=== PATIENT | female | born 1970 | race Caucasian/White ===

== ENCOUNTER 2017-01-24 16:34 | Inpatient (IN) ==
[2017-01-24] MEDS ORDERED: SODIUM CHLORIDE 0.9% 1,000 ML IV STA (17:27)
--- NOTE | 2017-01-24 18:05 | Emergency Department Note ---
Flaquita Hannah Hilary, am scribing for, and in the presence of, Zeeshan Ontiveros MD 17:32. Weston Hannah Robert M, MD, personally performed the services described in this documentation, ascribed by Meghan Sams in my presence, and it is both accurate and complete [id number] . Arrival - Arrival Chief Complaint: GI Bleed/Rectal Stated Complaint: WHOLE BODY ACHING/HURTING REALLY BAD ED Nursing Triage Note: Pt c/o bright red rectal bleeding today with clots. Pt reports recent Crohn's flare up. Pt also had edema to right eye lid- states gets cellulitis to eye with her flare ups. Pt c/o generalized body aches. Mode of Arrival: Ambulatory Limitations: No Limitations Source: Patient, RN Notes Reviewed Time Seen by Provider: 01/24/17 17:24 - History of Present Illness HPI Narrative: Pt is a white female presenting to the ED with c/o of bright red rectal bleeding today with clots which onset earlier today. Pt reports that she has had Crohn's for 16 years and believes this is a flare up from it. She says she is also finding "tissue" in her underwear during these flareups, of which she had 3 episodes today. No other complaints or problems stated in the ED. Onset (ago): hour(s) Date of Last Menstrual Period: Hyst Allergies/Adverse Reactions: Allergies Allergy/AdvReac Type Severity Reaction Status Date / Time cefazolin Allergy Unknown/Unable Verified 01/24/17 16:54 to obtain diphenhydramine AdvReac Irritable Verified 01/24/17 16:54 [From Benadryl] Home Medications: Home Medications Medication Instructions Recorded Confirmed Type HYDROcodone/ACETAMIN 10-325 [Pioneer 1 tablet PO Q4H PRN 01/24/17 01/24/17 History 10-325] Promethazine Tab [Phenergan Tab] 25 mg PO Q6H PRN 01/24/17 01/24/17 History Zolpidem Tartrate 10 mg PO BEDTIME PRN 01/24/17 01/24/17 History predniSONE TAB [PredniSONE] 20 mg PO BID 01/24/17 01/24/17 History Review of System - Review of System 12 point system: reviewed and no additional remarkable complaints except as stated - Review of System Constitutional: Present: fever Eyes: Present: redness, vision change Head/Ears/Nose/Throat: Present: other (constantly thirsty) Gastrointestinal: Present: abdominal pain, diarrhea, hematochezia Musculoskeletal: Present: other (joint pain) Medical,Surgical,& Family Hx - Medical History Rheumatology: History of;: Rheumatoid Arthritis Gastrointestinal: History of: Crohn's Disease - Social History Smoking Status: Never smoker Frequency of Alcohol Use: Occasionally Type of Drug Use: None Exam Vital Signs: Vital Signs Temperature 99.5 F 01/24/17 17:14 Pulse Rate 130 H 01/24/17 19:00 Respiratory Rate 18 01/24/17 19:00 Blood Pressure 148/100 01/24/17 19:00 O2 Sat by Pulse Oximetry 100 01/24/17 19:00 - General General appearance: alert, in no apparent distress, other (skinny) - Head Head exam: Present: atraumatic, normocephalic, other (pick rice along right cheek) - Eye Eye exam: Present: normal appearance, PERRL, EOMI, other (periorbital errythema) - ENT ENT exam: Present: mucous membranes moist, TM's normal bilaterally. Absent: mucous membranes dry - Neck Neck exam: Present: full ROM, trachea midline. Absent: tenderness - Chest Chest inspection: Present: symmetric chest wall rise. Absent: tenderness - Respiratory Respiratory exam: Present: normal lung sounds bilaterally. Absent: respiratory distress - Cardiovascular Cardiovascular exam: Present: regular rate, normal rhythm, normal heart sounds. Absent: murmur, rubs, gallop - Abdominal Exam Abdominal exam: Present: soft, tenderness, normal bowel sounds. Absent: distention - Extremities Exam Extremities exam: Present: full ROM. Absent: tenderness, calf tenderness - Back Exam Back exam: Present: full ROM. Absent: tenderness - Neurological Exam Neurological exam: Present: alert, oriented X3, CN II-XII intact. Absent: motor sensory deficit - Psychiatric Psychiatric exam: Present: normal affect, normal mood, other (hyperdramatic) - Skin Skin exam: Present: warm, dry, intact, normal color. Absent: rash Course - Consultations Consultation #1: The hospitalist service will evaluate and admit the patient. Time: 20:27 Results - Labs CBC & BMP: 01/24/17 18:14 01/24/17 18:14 Lab Results: I have reviewed the patients labs Labs: Lab Results WBC 16.3 T/CUMM (4-12) H 01/24/17 18:14 RBC 3.11 MC/CUMM (3.8-5.5) L 01/24/17 18:14 Hgb 9.9 GM/DL (12.0-16.0) L 01/24/17 18:14 Hct 29.3 VOL% (35.7-47.0) L 01/24/17 18:14 MCV 94.2 FL (87-102) 01/24/17 18:14 MCH 32 PG (27-34) 01/24/17 18:14 MCHC 33.8 GM/DL (32-36) 01/24/17 18:14 RDW 12.7 % (9.3-17.3) 01/24/17 18:14 Plt Count 453 T/CUMM (130-400) H 01/24/17 18:14 MPV 9.7 FL (9.6-12.0) 01/24/17 18:14 Neut % (Auto) 73.9 % (38.7-73.9) 01/24/17 18:14 Lymph % (Auto) 14.3 % (21.3-54.2) L 01/24/17 18:14 [place] % (Auto) 9.9 % (1.7-12.7) 01/24/17 18:14 Eos % (Auto) 0.7 % (0.00-10.9) 01/24/17 18:14 Baso % (Auto) 0.5 % (0.0-0.8) 01/24/17 18:14 Neut # (Auto) 12.0 10*3/uL (1.4-7.4) H 01/24/17 18:14 Lymph # (Auto) 2.3 10*3/uL (1.4-4.0) 01/24/17 18:14 [place] # (Auto) 1.6 10*3/uL (0.11-0.8) H 01/24/17 18:14 Eos # (Auto) 0.1 10*3/uL (0.0-0.87) 01/24/17 18:14 Baso # (Auto) 0.1 10*3/uL (0.0-0.2) 01/24/17 18:14 Immature Gran % 0.7 % 01/24/17 18:14 Nucleated RBC % 0.0 /100WBC 01/24/17 18:14 Immature Gran # 0.12 # 01/24/17 18:14 Nucleated RBCs # 0.00 10*3/uL 01/24/17 18:14 INR 1.0 01/24/17 18:14 PT Patient/Control Mix 10.8 SECS 01/24/17 18:14 Sodium 136 MMOL/L (136-145) 01/24/17 18:14 Potassium 3.7 MMOL/L (3.5-5.1) 01/24/17 18:14 Chloride 101 MMOL/L (98-107) 01/24/17 18:14 Carbon Dioxide 27 MMOL/L (21-32) 01/24/17 18:14 Anion Gap 11.7 MMOL/L (5.0-15.0) 01/24/17 18:14 BUN 10 MG/DL (7-18) 01/24/17 18:14 Creatinine 0.80 MG/DL (0.55-1.02) 01/24/17 18:14 GFR Calculation 79 ML/MIN 01/24/17 18:14 BUN/Creatinine Ratio 12.00 RATIO (6.00-20.00) 01/24/17 18:14 Glucose 100 MG/DL (74-106) 01/24/17 18:14 Calculated Osmolality 270.0 MOS/KG (273-304) L 01/24/17 18:14 Calcium 8.7 MG/DL (8.5-10.1) 01/24/17 18:14 Magnesium 2.0 MG/DL (1.8-2.4) 01/24/17 18:14 Total Creatine Kinase 107 U/L (26-192) 01/24/17 18:14 CK-MB (CK-2) 1.1 U/L (0.5-3.6) 01/24/17 18:14 Troponin I < 0.015 NG/ML (0.00-0.045) 01/24/17 18:14 Amylase 41 U/L (25-115) 01/24/17 18:14 Lipase 84.0 U/L (73-393) 01/24/17 18:14 Laboratory Tests 01/24/17 19:58 Urine Opiates Screen Positive H U Amphetamine/Methamph Positive H - Diagnostic Findings Procedure: Abdominal x-ray: report reviewed by me Disposition Clinical Impression: Lower GI bleed, Acute on chronic abdominal pain, History of Crohn's disease, Methamphetamine use Case discussed with: patient, patient's family Disposition: Still a Patient Condition: Stable Time of Disposition: 20:27
[2017-01-24 18:25] LABS: Basophils # 0.1 10*3/uL (0.0-0.2); Basophils % 0.5 % (0.0-0.8); Eosinophils # 0.1 10*3/uL (0.0-0.87); Eosinophils % 0.7 % (0.00-10.9); Hematocrit 29.3 VOL% (35.7-47.0); Hemoglobin 9.9 GM/DL (12.0-16.0); Immature Granulocytes % 0.7 %; Immature Granulocytes Absolute 0.12 #; Lymphocytes # 2.3 10*3/uL (1.4-4.0); Lymphocytes % 14.3 % (21.3-54.2); Mean Corpuscular HGB Conc 33.8 GM/DL (32-36); Mean Corpuscular Hemoglobin 32 PG (27-34); Mean Corpuscular Volume 94.2 FL (87-102); Mean Platelet Volume 9.7 FL (9.6-12.0); Monocytes # 1.6 10*3/uL (0.11-0.8); Monocytes % 9.9 % (1.7-12.7); Neutrophils % 73.9 % (38.7-73.9); Platelet Count 453 T/CUMM (130-400); Red Blood Count 3.11 MC/CUMM (3.8-5.5); Red Cell Distribution Width 12.7 % (9.3-17.3); White Blood Count 16.3 T/CUMM (4-12)
--- NOTE | 2017-01-24 18:29 | XRay Report ---
XR KUB Indication: Abdominal pain Comparison: 14 April 2014 Findings: No free fluid or free air seen. Increased stool volume is seen in the colon. The bowel gas pattern otherwise appears within normal limits. No abnormal calcifications are present. No other abnormality is identified. Impression: Increased stool volume in the colon, may indicate constipation. PROCEDURE INTERPRETED AT [facility] Final Report Signed by: Dr. Perry Dillard
[2017-01-24 18:35] LABS: PT Patient Result 10.8 SECS
[2017-01-24 18:41] LABS: Calcium 8.7 MG/DL (8.5-10.1); Potassium 3.7 MMOL/L (3.5-5.1)
[2017-01-24 18:46] LABS: Troponin I Only < 0.015 NG/ML (0.00-0.045)
[2017-01-24] MEDS ORDERED: KETOROLAC 30 MG/1 ML VIAL IV STA (20:02)
[2017-01-24] MEDS ORDERED: KETOROLAC 30 MG/1 ML VIAL ONE (20:02)
[2017-01-24 20:18] LABS: Apearance,Urine CLEAR (Clear); Bilirubin,Urine Negative (Negative); Blood, Urine Moderate mg/dL (Negative); Glucose,Urine (UA) Negative (Negative); Ketones,Urine 5 mg/dL (Negative); Mucus,Urine Occasional /LPF (Occasional); Nitrite,Urine Negative (Negative); Protein,Urine Negative; RBC,Urine 47 /HPF (0-4); Squamous Epithelial Cell,Urine Occasional /HPF (0-10); Urine Color Yellow (Yellow); Urine Specific Gravity 1.015 (1.001-1.035); Urine Urobilinogen < 2.0 EU/DL (0.2-1.0); WBC,Urine 12 /HPF (0-6)
[2017-01-24 20:24] LABS: Barbiturates Screen,Urine Negative (Negative); Benzodiazepines Screen,Urine Negative (Negative); Cannabinoid Screen,Urine Negative (Negative); Opiate Screen,Urine Positive (Negative); Phencyclidine Screen,Urine Negative (Negative)
[2017-01-24] MEDS ORDERED: ZALEPLON 5 MG CAPSULE PO PRN ×2 (20:30→22:12)
[2017-01-24] MEDS ORDERED: ACETAMINOPHEN 325 MG TABLET PO PRN (20:30)
[2017-01-24] MEDS ORDERED: ONDANSETRON 4 MG/2 ML VIAL IV PRN (20:30)
--- NOTE | 2017-01-24 21:44 | Hospitalist History & Physical ---
<Bon Hartley - Last Filed: 01/24/17 21:29> Assessment and Plan (1) Lower GI bleed Status: Acute Assessment and plan: Patient reports noticing blood in her underwear. ER reports clots per rectum. H/ H 9.9/29.3. Patient has been admitted for observation and GI has been consulted. Continue to monitor H&H. Will transfuse if indicated. Current Visit: Yes (2) History of Crohn's disease Status: Acute Assessment and plan: 16-year history. Followed by Dr. Ellsworth in the past. Has not taken Remicade in approximately 2 years. Solu-medrol 60mg IV q8h. IV fluids. GI has been consulted. Current Visit: Yes (3) Methamphetamine use Status: Acute Assessment and plan: UDS postive for methaphetamine. Patient states she does not use elicit drugs of any kind, however she admits to taking a stimulant, the name of which she can't recall, about a week ago. Current Visit: Yes History of Present Illness Chief complaint: GI bleed History of present illness: Ms. Roth is a 46 year old female with a past medical history significant for Crohn's disease, rheumatoid arthritis, pericarditis presents to the ED with complaints of bleeding per rectum with clots since earlier today. The patient reports that she has been diagnosed with Crohn's disease for [address] Kervin Ellsworth in the past for care. She states that she began noticing blood in her stool about one month ago, around the same time that she began taking oral prednisone. She says it has progressively gotten worse, but, due to her daughter's impending graduation, she decided to "patch it up" and schedule a GI appointment for later. She states that has had severe diarrhea today x4 that has been extremely painful, causing her to break out in sweat. She admits to being prescribed Remicade for disease management but has not taken it in nearly 2 years. On exam, she is aggitated, erratic, tachycardic, tender to palpation of the abdominal LLQ and describes herself as "passive aggressive". She is admittedly under a lot of stress. Her mother, whom she lives with, is at bedside. Labs on admissions: WBC 16.3, Hgb 9.9, Hct 29.3, small leukocytes in her urine. She tested positive for opiates and amphetamines. KUB reveals increased stool volume. After discussion with Dr. Ontiveros and Dr. Moctezuma, it has been agreed to admit her to the hospital medicine service for further evaluation and treatment. We will consult Dr. Ellsworth. The patient is a full code. Home Medications Medication Instructions Recorded Confirmed Type HYDROcodone/ACETAMIN 10-325 [Ethel 1 tablet PO Q4H PRN 01/24/17 01/24/17 History 10-325] Promethazine Tab [Phenergan Tab] 25 mg PO Q6H PRN 01/24/17 01/24/17 History Zolpidem Tartrate 10 mg PO BEDTIME PRN 01/24/17 01/24/17 History predniSONE TAB [PredniSONE] 20 mg PO BID 01/24/17 01/24/17 History Allergies Allergy/AdvReac Type Severity Reaction Status Date / Time cefazolin Allergy Unknown/Unable Verified 01/24/17 16:54 to obtain diphenhydramine AdvReac Irritable Verified 01/24/17 16:54 [From Debbie] Medical,Surgical,& Family Hx - Medical History Rheumatology: History of;: Rheumatoid Arthritis Gastrointestinal: History of: Crohn's Disease - Social History Smoking Status: Never smoker Frequency of Alcohol Use: Occasionally Type of Drug Use: None Marital Status: Single Lives With:: Parent Functional capacity: independent ambulation 12 point system: reviewed and no additional remarkable complaints except as stated - Cardiovascular Cardiovascular: Absent: chest pain at rest, edema - Gastrointestinal Gastrointestinal: Present: abdominal pain, constipation, diarrhea, hematochezia - Psychiatric Psychiatric: Present: anxiety Exam - Constitutional Exam: General appearance: normal weight, moderate distress - Head Head exam: Present: normocephalic, atraumatic - Eye Eye exam: Present: EOMI. Absent: conjunctival injection, nystagmus Pupils: Present: MADHAVI, normal accommodation - ENT ENT exam: Present: normal exam, normal external ear exam - Neck Neck exam: Present: normal inspection. Absent: lymphadenopathy, tenderness, thyromegaly - Respiratory Respiratory exam: Present: clear to auscultation bilaterally. - Cardiovascular Cardiovascular exam: Present: regular rate and rhythm. Absent: carotid bruit, gallop, rubs - GI/Abdominal GI/Abdominal exam: Present: tender to LLQ, guarding Absent: ascites, distended , mass - Extremities Exam Extremities exam: Present: normal inspection, normal capillary refill. Absent: edema - Back Exam Back exam: Absent: CVA tenderness (L), CVA tenderness (R) - Neurological Exam Neurological exam: Present: alert, oriented X3 - Psychiatric Psychiatric exam: Present: erratic, anxious - Skin Skin exam: Present: normal color, several areas of warm, dry Results - Labs CBC & BMP: 01/24/17 18:14 01/24/17 18:14 <Erica Moctezuma - Last Filed: 01/24/17 22:30> History of Present Illness History of present illness: Ms. Roth is a 46 year old female Medical,Surgical,& Family Hx - Medical History Cardio: History of: Cardiovascular Problems (Pericarditis.) Psychological: History of: Anxiety Disorders, Depression - Family History Family History: Reports;: Family Hypertension - Social History Smoking Status: Former smoker Have you smoked in the last 12 months: No 12 point system: reviewed and no additional remarkable complaints except as stated Exam - Constitutional Vitals: Period Temp Pulse Resp BP Sys/Martin Pulse Ox Last 24 Hr 99.7 F 111-124 18-20 113-125/74-83 97-97 Exam: Patient is found to be anxious. Cardiovascular tachycardic Respiratory clear to auscultation bilaterally Gastrointestinal soft thin tender to palpation of the left lower quadrant with positive bowel sounds. No rebound. Extremities without cyanosis clubbing or significant edema. Results - Labs CBC & BMP: 01/24/17 18:14 01/24/17 18:14 Lab Results: I have reviewed the past 24 hour labs - Diagnostic Findings Procedure: KUB x-ray: image reviewed by me, report reviewed by me
[2017-01-24] MEDS ORDERED: PROMETHAZINE 25 MG TABLET PO PRN (22:12)
[2017-01-24] MEDS: SODIUM CHLORIDE 0.9% 1,000 ML IV SCH (22:34)
[2017-01-24] MEDS: methylPREDNISolone SOD SUC 40 MG/1 ML VIAL IV SCH (22:34)
[2017-01-24 22:41] LABS: Hematocrit 24.7 VOL% (35.7-47.0); Hemoglobin 8.4 GM/DL (12.0-16.0)
[2017-01-25] MEDS: methylPREDNISolone SOD SUC 40 MG/1 ML VIAL IV SCH ×3 (04:42→20:09)
[2017-01-25 05:45] LABS: Basophils % 0.2 % (0.0-0.8); Hematocrit 27.4 VOL% (35.7-47.0); Hemoglobin 9.4 GM/DL (12.0-16.0); Immature Granulocytes Absolute 0.12 #; Lymphocytes # 0.8 10*3/uL (1.4-4.0); Lymphocytes % 6.5 % (21.3-54.2); Mean Corpuscular HGB Conc 34.3 GM/DL (32-36); Mean Corpuscular Hemoglobin 32 PG (27-34); Mean Corpuscular Volume 92.6 FL (87-102); Mean Platelet Volume 9.6 FL (9.6-12.0); Monocytes # 0.1 10*3/uL (0.11-0.8); Monocytes % 0.9 % (1.7-12.7); Neutrophils # 10.6 10*3/uL (1.4-7.4); Neutrophils % 91.4 % (38.7-73.9); Platelet Count 372 T/CUMM (130-400); Red Blood Count 2.96 MC/CUMM (3.8-5.5); Red Cell Distribution Width 12.7 % (9.3-17.3); White Blood Count 11.6 T/CUMM (4-12)
[2017-01-25 06:09] LABS: Band Neutrophils 2 % (0-10); Hypochromasia 1+; Lymphocytes 11 % (20-55); Ovalocytes Slight; Platelet Estimate Adequate; Segmented Neutrophils 86 % (50-85); Total Cells Counted 100
[2017-01-25 06:17] LABS: Osmolality,Calculated 284.1 MOS/KG (273-304); Potassium 4.1 MMOL/L (3.5-5.1)
[2017-01-25] MEDS: PANTOPRAZOLE 40 MG TABLET PO SCH (09:00)
[2017-01-25] MEDS: SODIUM CHLORIDE 0.9% 1,000 ML IV SCH ×2 (10:53→20:13)
--- NOTE | 2017-01-25 11:18 | Gastrointestinal Consult Note ---
Assessment and Plan (1) Lower GI bleed Status: Acute Assessment and plan: 01/25-sudden onset of bright red rectal bleeding with possible clots on yesterday with severe abdominal cramping. 18 year history of Crohn's disease with report of multiple mild flares. Last Remicade use 2 years ago. Unable to recall last colonoscopy. Obtain records from the emergency regarding endoscopy. Monitor serial H&H. Start clear liquid diet. Plan an addendum to followed by Dr. Ellsworth. Current Visit: Yes History of Present Illness Chief complaint: Abdominal pain, rectal bleeding History of present illness: Ms. Roth is a 46 year old female who presented to the emergency room with reports of severe abdominal pain and rectal bleeding. Patient has a history of Crohn's disease in which she was diagnosed 18 years ago. She was initially seen at [facility] at time of diagnosis and then transferred her care here to Dr. Ellsworth. She states that she has had multiple flares of her Crohn's throughout the years however has been up to control most of these at home. At one point in time she was taking Remicade however states that she has not taken this in 2 years due to it has been more under control. She is unable to recall her last colonoscopy but states it is been "a while". Patient states that the last several days she has not felt well with increased abdominal pain and cramping. She states that 3 days ago she began having some increased rectal bleeding however went to her PCP was given prednisone. She states that she was trying to "patch myself up" to get through her daughter's graduation this week. She states that on yesterday she had an appointment with eye doctor for history of cellulitis to her eye and on the way they are she had a sudden onset of severe abdominal cramping. Shortly after this she noticed that she had passed what she states was a good amount of bright red blood. She went to her friend's house and cleaned herself up and tried to continue on to the doctor's appointment however had another episode. At this time she went to her mother's house and use the restroom there and states she noted she was passing "strings of tissue" from her rectum, which sounds possibly like blood clots. She states that she has never had pain to the severity and complains of pain mostly in her left lower quadrant. She has had rectal bleeding in the past related to her Crohn's but states only a very small amounts and never to this extent. She denies any weight loss, fever or chills. Denies any nausea or vomiting. According to her admission note, patient's mother reported patient has a history of erratic behavior and tachycardia and has concerns of patient using amphetamines. Mother was requesting involuntary placement in a rehab facility however she was explained by admitting physician that this could not be done in that manner. Hemoglobin 8.4 and admission now at 9.4 with no blood transfusion at this time. Patient's drug screen is noted to be positive for opiates and amphetamines/methamphetamines. KUB shows increased stool in colon/constipation. Home Medications Medication Instructions Recorded Confirmed Type HYDROcodone/ACETAMIN 10-325 [Raymond 1 tablet PO Q4H PRN 01/24/17 01/24/17 History 10-325] Promethazine Tab [Phenergan Tab] 25 mg PO Q6H PRN 01/24/17 01/24/17 History Zolpidem Tartrate 10 mg PO BEDTIME PRN 01/24/17 01/24/17 History predniSONE TAB [PredniSONE] 20 mg PO BID 01/24/17 01/24/17 History Allergies Allergy/AdvReac Type Severity Reaction Status Date / Time cefazolin Allergy Unknown/Unable Verified 01/24/17 16:54 to obtain diphenhydramine AdvReac Irritable Verified 01/24/17 16:54 [From Benadryl] Medical,Surgical,& Family Hx - Medical History Cardio: History of: Cardiovascular Problems (Pericarditis.) Psychological: History of: Anxiety Disorders, Depression Rheumatology: History of;: Rheumatoid Arthritis Gastrointestinal: History of: Crohn's Disease - Family History Family History: Reports;: Family Hypertension - Social History Smoking Status: Former smoker Frequency of Alcohol Use: Occasionally Type of Drug Use: None 12 point system: reviewed and no additional remarkable complaints except as stated - Constitutional Constitutional: Present: as per HPI - EENT Eyes: Present: as per HPI Ears: Present: as per HPI Nose, mouth and throat: Present: as per HPI - Cardiovascular Cardiovascular: Present: as per HPI - Respiratory Respiratory: Present: as per HPI - Gastrointestinal Gastrointestinal: Present: as per HPI, abdominal pain, cramping, diarrhea, hematochezia, loose stools - Genitourinary Genitourinary: Present: as per HPI - Musculoskeletal Musculoskeletal: Present: as per HPI, arthralgias - Neurological Neurological: Present: as per HPI - Psychiatric Psychiatric: Present: as per HPI - Endocrine Endocrine: Present: as per HPI - Hematologic/Lymphatic Hematologic/Lymphatic: Present: as per HPI Exam - Constitutional Vitals: Period Temp Pulse Resp BP Sys/Martin Pulse Ox Last 24 Hr 97.9 F-99.7 F 97-124 18-20 109-125/69-83 97-98 General appearance: normal weight, no acute distress - Head Head exam: Present: normal inspection, normocephalic - Eye Eye exam: Present: other (Lids and conjunctive are unremarkable). Absent: scleral icterus - ENT ENT exam: Present: normal exam, normal oropharynx - Neck Neck exam: Present: normal inspection - Respiratory Respiratory exam: Present: clear to auscultation bilaterally. Absent: rales, rhonchi, wheezes - Cardiovascular Cardiovascular exam: Present: regular rate and rhythm. Absent: diastolic murmur , JVD, systolic murmur - GI/Abdominal GI/Abdominal exam: Present: normal bowel sounds, tenderness, soft. Absent: ascites, distended, mass, organomegaly - Extremities Exam Extremities exam: Present: normal inspection, full ROM - Back Exam Back exam: Present: normal inspection - Neurological Exam Neurological exam: Present: alert, oriented X3 - Psychiatric Psychiatric exam: Present: normal affect, normal mood - Skin Skin exam: Present: normal color, warm, dry Results - Labs CBC & BMP: 01/25/17 05:38 01/25/17 05:38 Lab Results: I have reviewed the past 24 hour labs
[2017-01-25 12:35] LABS: Hematocrit 27.3 VOL% (35.7-47.0); Hemoglobin 9.2 GM/DL (12.0-16.0)
[2017-01-25] MEDS: MORPHINE 2 MG/1 ML SYRINGE IV PRN ×2 (12:46→20:10)
--- NOTE | 2017-01-25 13:48 | Hospitalist Progress Note ---
Assessment and Plan - Time spent with patient Time spent with patient: Greater than 30 minutes (1) Crohn disease Status: Acute Assessment and plan: With rectal bleeding. GI is involved, continue current management. Current Visit: Yes Hospitalist: Subjective Interval history: Complains of abdominal pain. Denies illicit drug use however stated she took the generic for adderrall from a friends prescription. Exam - Constitutional Vitals: Period Temp Pulse Resp BP Sys/Martin Pulse Ox Last 24 Hr 97.9 F-99.7 F 81-124 18-20 109-125/69-83 97-98 General appearance: no acute distress - Head Head exam: Present: normocephalic, atraumatic - Eye Eye exam: Present: EOMI Pupils: Present: MADHAVI - ENT ENT exam: Present: normal exam - Neck Neck exam: Present: normal inspection - Respiratory Respiratory exam: Present: clear to auscultation bilaterally. Absent: rhonchi, wheezes - Cardiovascular Cardiovascular exam: Present: regular rate and rhythm. Absent: gallop, rubs, systolic murmur - GI/Abdominal GI/Abdominal exam: Present: normal bowel sounds, tenderness, soft. Absent: distended, firm, guarding, rebound - Extremities Exam Extremities exam: Present: normal inspection. Absent: calf tenderness, edema Results - Labs CBC & BMP: 01/25/17 12:24 01/25/17 05:38 Lab Results: I have reviewed the past 24 hour labs
[2017-01-25] MEDS ORDERED: POLYETHYLENE GLYCOL POWDER 255 GM BOTTLE PO ONE (18:00)
[2017-01-25 18:12] LABS: Hematocrit 28.5 VOL% (35.7-47.0); Hemoglobin 9.3 GM/DL (12.0-16.0)
[2017-01-26] MEDS: MORPHINE 2 MG/1 ML SYRINGE IV PRN (01:59)
[2017-01-26] MEDS ORDERED: MAGNESIUM CITRATE 300 ML BOTTLE PO ONE ×2 (02:00→06:00)
[2017-01-26] MEDS: methylPREDNISolone SOD SUC 40 MG/1 ML VIAL IV SCH ×2 (04:08→13:09)
[2017-01-26] MEDS: SODIUM CHLORIDE 0.9% 1,000 ML IV SCH (04:28)
[2017-01-26 07:10] LABS: Hematocrit 24.7 VOL% (35.7-47.0); Hemoglobin 8.3 GM/DL (12.0-16.0)
--- NOTE | 2017-01-26 07:54 | EKG Report ---
Stationary ECG Study [facility] Test Date: 01/26/2017 7:53:08 AM Pat Name: VANESSA DEGROOT Department: Room: 238 Gender: F Shank Turner: RUMA : 1970 Requested by: Larisa Ernst Order Number: [id number] Reading MD: MARBELLA VELASCO Intervals [place] Rate: 82 P: 19 [place]: 121 QRS: 50 QRSD: 93 T: 42 QT: 383 QTc: 421 Interpretive Statements SINUS RHYTHM Electronically Signed On 01-26-17 17:25:45 CDT by MARBELLA VELASCO [email or web address]
[2017-01-26] MEDS ORDERED: LIDOCAINE 2% 5 ML VIAL ONE (11:20)
[2017-01-26] MEDS ORDERED: PROPOFOL 200 MG/20 ML VIAL IV ONE (11:20)
[2017-01-26] MEDS ORDERED: fentaNYL 100 MCG/2 ML VIAL ONE (11:21)
--- NOTE | 2017-01-26 11:44 | History and Physical Update ---
History and Physical Update - History and Physical H&P was reviewed, the patient examined and there: are no changes in the patients condition since last H&P was completed. - Physical Exam Mental Status: alert and oriented Heart: regular rate and rhythm Lung: clear to auscultation Abdomen: within normal limits Vitals: within normal limits
--- NOTE | 2017-01-26 11:48 | Anesthesia Post-Op ---
Anesthesia Post OP - Post Ansesthetic Evaluation Patient seen in post op: Yes Resp: within normal limits CV: within normal limits Mental: within normal limits Temp: within normal limits [id number]: within normal limits Nausea and Vomiting: within normal limits Pain: within normal limits
--- NOTE | 2017-01-26 11:50 | Operative Note ---
Date of procedure: 01/26/17 Pre-op diagnosis: Crohn's disease, lower GI bleeding Procedure: Procedure note: Colonoscopy with biopsies Physician: Dr. Kervin Ellsworth Brief clinical abstract: Patient is a 46-year-old female with Crohn's disease diagnosed around 18 years ago. She has previously been on Remicade therapy up until a couple of years ago but then discontinued this on her own. She is admitted with increased shortness of the last couple months blood in her stool. She complains of decreased energy and nocturnal stools with this. Endoscopic findings: After informed consent was obtained, the patient was placed in the left lateral decubitus position. Digital rectal exam was performed with no palpable abnormalities felt. Pediatric videocolonoscope was inserted into the rectum and advanced to the cecum without difficulty. Terminal ileum was intubated and distal 8-10 cm really mucosa had normal appearance. Ileocecal valve was normal. Bowel prep was of good quality. Withdrawal time was over 6 minutes duration. There were scattered areas throughout the colon which appear to be pseudopolyps. Multiple biopsies were obtained from these areas for pathologic examination. In the sigmoid colon and rectum there were scattered large serpiginous ulcers consistent with Crohn's disease. There were some areas of mild sparing. Several areas in the rectum distally appeared to be probable fistulous openings. The endoscope was withdrawn in the rectum with retroflex view showing no other abnormalities. The ulceration extended down to within a centimeter of the dentate line. The endoscope was removed and patient appeared to tolerate procedure well. Impression: Crohn's disease-with severe endoscopic activity and rectosigmoid colon including fistulous formation Plan: Continue Flagyl therapy and would add steroids for now. Patient needs to resume biologic therapy with Remicade or Humira as an outpatient. She wants to go to her daughter's graduation later today. Anesthesia: MAC Surgeon / Physician: Minh Ellsworth Estimated blood loss: minimal Specimens: other (Colon biopsies, probable pseudopolyps) Condition: stable Disposition: post procedure unit Results - Labs CBC & BMP: 01/26/17 07:03 01/25/17 05:38 Discharge Plan - Discharge Medications No Action Promethazine Tab [Phenergan Tab] 25 mg PO Q6H PRN PRN Reason: Nausea/Vomiting Zolpidem Tartrate 10 mg PO BEDTIME PRN PRN Reason: Insomnia HYDROcodone/ACETAMIN 10-325 [[place] 10-325] 1 tablet PO Q4H PRN PRN Reason: Pain - Follow Up or Referral - Forms/Instructions
[2017-01-26 12:09] VITALS: BP 121/89
[2017-01-26] MEDS: PANTOPRAZOLE 40 MG TABLET PO SCH (13:07)
--- NOTE | 2017-01-26 13:30 | Discharge Summary ---
Hospital Course - Hospital Course Hospital Course: Ms Roth presented with a GI bleed. She was initiated on IV fluids and IV steroids for her acute Crohn's flare. GI was consulted and performed a colonoscopy which confirmed Crohns flare and fistulous disease. She was adamant about discharge and was cleared by GI for discharge. She will be prescribed oral prednisone with taper and oral flagyl. I spent 33 minutes coordinating this discharge. - Time spent with patient Time with patient DS: Greater than 30 minutes Diagnosis - Discharge Diagnosis (1) Crohn disease Status: Acute Discharge Plan - Discharge Data Disposition: Disch To Home/Self Care Condition at Discharge: Stable Discharge Diet: advance to your usual diet Activity: resume usual activities as tolerated Hygiene: no restrictions - Discharge Medications New metroNIDAZOLE TAB [Flagyl Cap/Tab] 500 mg PO TID #36 tablet predniSONE TAB [PredniSONE] 50 mg PO DAILY #7 tablet predniSONE TAB [PredniSONE] 30 mg PO DAILY #12 tablet predniSONE TAB [PredniSONE] 20 mg PO DAILY #4 tablet predniSONE TAB [PredniSONE] 40 mg PO DAILY #8 tablet predniSONE TAB [PredniSONE] 10 mg PO DAILY #4 tablet Continue Promethazine Tab [Phenergan Tab] 25 mg PO Q6H PRN PRN Reason: Nausea/Vomiting Zolpidem Tartrate 10 mg PO BEDTIME PRN PRN Reason: Insomnia HYDROcodone/ACETAMIN 10-325 [[place] 10-325] 1 tablet PO Q4H PRN PRN Reason: Pain - Follow Up or Referral Follow Up: Minh Ellsworth MD [Physician] - 1 Week - Forms/Instructions Exam - Constitutional Vitals: Period Temp Pulse Resp BP Sys/Martin Pulse Ox Last 24 Hr 97 F-98.4 F 76-107 15-20 104-132/57-89 93-100 Discharge Results Procedures and tests throughout hospitalization: Pending Orders 01/26/17 12:00 HH [Hemoglobin and Hematocrit] Q6H 01/26/17 18:00 HH [Hemoglobin and Hematocrit] Q6H 01/27/17 00:00 HH [Hemoglobin and Hematocrit] Q6H 01/27/17 06:00 HH [Hemoglobin and Hematocrit] Q6H 01/27/17 12:00 HH [Hemoglobin and Hematocrit] Q6H 01/27/17 18:00 HH [Hemoglobin and Hematocrit] Q6H Labs on day of discharge: Labs from last 24 hours 01/26/17 01/25/17 07:03 17:51 Hgb 8.3 L 9.3 L Hct 24.7 L 28.5 L DS: Provider Date of admission: 01/24/17 20:31 Primary care physician: . No PCP Attending physician on admission: Erica Moctezuma MD Consults: 01/24/17 22:10 Consult to Dietitian [CONS] Routine Reason for Dietitian: Supplements and/or Snacks Diet Recommendations Diet Instruction Consult Comment: Crohns Discharging clinician: Cindy Osei MD Expected date of discharge: 01/26/17
--- NOTE | 2017-01-26 14:47 | Event Note ---
Agree with plans for discharge on prednisone 40 mg daily. Patient instructed to call my office on Sunday and plan to look into starting biologic therapy with either Remicade or Humira. Plan would be to taper prednisone over the next couple weeks after biologic therapy instituted.
--- NOTE | 2017-01-30 13:08 | Physician Query Form ---
CLICK EDIT DOCUMENT TO SELECT QUERY ANSWER --> OK --> SIGN Allison Ontiveros RN, CCDS Certified Clinical Loss Prevention And Safety Manager W) [phone] (f) [phone] [email or web address] PROVIDERS: Make your selection(s) from the choices in EACH section by typing an "x" and enter comments in the comment section. Please use your independent medical judgment in providing your response. This request does not imply that any particular answer is desired or expected. CLINICAL INDICATORS: (Providers should not edit this section) Height: Ht. 64" Weight: Wt of 113 lb Customer Insight Analyst BMI: BMI 19.5 Nutritional supplements: Street Light Servicer Supervisor notes: Other clinical notes: The medical record indicates that the patient was admitted with lower GI bleeding, BMI 19.5, Ht. 64", Wt of 113 lb., and per dietary notes "weight loss - about 15-20 lbs per patient over past month (no weight hx in EMR): 11-15% of body weight (severe)". Based on the above, which following choice most accurately represents the patient's nutritional status? ( ) Malnutrition ( ) mild ( ) moderate ( x) Protein calorie malnutrition ( ) mild (x ) moderate (x ) Emaciation due to malnutrition ( ) Nutritional marasmus ( ) Cachexia ( ) Underweight ( ) No nutritional deficiency ( ) Other, please specify: ( ) Clinically unable to determine Mild Malnutrition (BMI < 18.5, % Normal Body Weight 85-95%) Moderate Malnutrition (BMI < 17, % Normal Body Weight 75-85%) Severe Malnutrition (BMI < 16, % Normal Body Weight < 75%) Source: [place] COMMENTS: PLEASE ALSO DOCUMENT RESPONSE IN PROGRESS NOTES AND/OR DISCHARGE SUMMARY Use of terms such as suspected, likely, or probable (associated with a specific diagnosis that is being evaluated, monitored, or treated as if it exists) are acceptable and can be restated in the discharge summary if not ruled out. MTDD
== END 2017-01-26 15:17 | disposition home or self-care (01) | DRG 245 ==
LOC: N.ED 16:34 → N.EDINP 20:30 → SUATTDRO 20:31 → N.2E 21:38
PROVIDERS: ADMIT Family Medicine; ATTEND Internal Medicine
PROC: COLONBX (2017-01-26 12:05)